=== PATIENT | male | born 1965 | race Caucasian/White ===

== ENCOUNTER → 2017-08-19 | Outpatient (CLI) | payer OTHER ==
--- NOTE | 2017-08-19 11:33 | 2DMMODE ---
[place] [address] 2 D/M-MODE ECHOCARDIOGRAM Name: JUSTICE STILL Room: [facility]#: [id number] Admission: 08/19/17 Attend Phys: Vince Aguillon, Discharge: Date of : 61 Date of Service: 08/19/17 1133 Report #: [id number] THIS REPORT FOR: //name// APPROVED REPORT Study performed: 08/19/2017 08:57:26 EXAM: Comprehensive 2D, Doppler, and color-flow Echocardiogram Patient Location: Out-Patient Status: routine BSA: 2.44 HR: 96 bpm BP: 142/100 mmHg Other Information Study Quality: Adequate Indications LVH 2D Dimensions LVEF(%): 74.88 (>50%) IVSd: 14.61 (7-11mm) LVOT Diam: 20.29 (18-24mm) LVDd: 49.16 mm PWd: 14.73 (7-11mm) Ascending Ao: 37.42 (22-36mm) LVDs: 27.61 (25-40mm) Aortic Root: 30.25 mm Dotson's LVEF: 74.88 % Volumes Left Atrial Volume (Systole) LA ESV Index: 20.90 mL/m2 Aortic Valve AoV Peak Santos.: 1.98 m/s AO Peak Gr.: 15.73 mmHg LVOT Max P.76 mmHg AO Mean Gr.: 9.74 mmHg LVOT Mean P.07 mmHg LVOT Max V: 0.66 m/s AO V2 VTI: 38.59 cm LVOT Mean V: 0.50 m/s JUAN JOSÉ (VTI): 1.14 cm2 LVOT V1 VTI: 13.66 cm AI Taylor: 3.09 m/s2 AI PHT: 377.[place] [address] 2 D/M-MODE ECHOCARDIOGRAM Name: JUSTICE STILL Room: [facility]#: [id number] Admission: 08/19/17 Attend Phys: Vince Aguillon, Discharge: Date of : 61 Date of Service: 08/19/17 1133 Report #: [id number] E/A Ratio: 0.96 MV Decel. Time: 84.95 ms MV E Max Santos.: 0.74 m/s MV PHT: 24.64 ms MVA (PHT): 8.93 cm2 TDI E/Lateral E': 6.73 E/Medial E': 9.25 Medial E' Santos.: 0.08 m/s Lateral E' Santos.: 0.11 m/s Pulmonary Valve PV Peak Santos.: 0.81 m/s PV Peak Gr.: 2.60 mmHg Left Ventricle The left ventricle is normal size. There is normal LV segmental wall motion. Mild concentric left ventricular hypertrophy. Left ventricular systolic function is normal. The left ventricular ejection fraction is within the normal range. LVEF is 55-60%. Grade I - abnormal relaxation pattern. Right Ventricle The right ventricle is normal size. The right ventricular systolic function is normal. Atria The left atrium size is normal. The right atrium size is normal. Aortic Valve Aortic valve leaflets are mildly thickened. Mild aortic regurgitation. Mild aortic stenosis. Mitral Valve The mitral valve is normal in structure. There is no mitral valve regurgitation noted. No evidence of mitral valve stenosis. Tricuspid Valve The tricuspid valve is normal in structure. There is no tricuspid valve regurgitation noted. Pulmonic Valve Pulmonic valve is not well visualized. There is no pulmonic valvular [place] [address] 2 D/M-MODE ECHOCARDIOGRAM Name: TESSYJUSTICE W Room: [facility]#: [id number] Admission: 08/19/17 Attend Phys: Vince Aguillon, Discharge: Date of : 61 Date of Service: 08/19/17 1133 Report #: [id number] Aortic root is mildly dilated. IVC is normal in size and collapses with >50% inspiration Pericardium There is no pericardial effusion. <Conclusion> Mild concentric left ventricular hypertrophy. Mild aortic stenosis. Mild aortic regurgitation. LVEF is 55-60%. <ELECTRONICALLY SIGNED> By: dE Dang MD, [facility] 08/19/17 1133 1133 113 Ed Dang MD, FACC /INF
== END ==
LOC: M.CRD 08:30
DX: I51.7 Cardiomegaly (principal); I35.1 Nonrheumatic aortic (valve) insufficiency; I35.0 Nonrheumatic aortic (valve) stenosis